=== PATIENT | female | born 1990 | race Caucasian/White ===

== ENCOUNTER 2016-07-23 12:44 | Emergency (ER) | payer SELFPAY ==
[~2016-07-23] VITALS: Ht 172.7 cm; Wt 133.8 kg
[2016-07-23 13:15] VITALS: BP 140/78
[2016-07-23 13:27] LABS: BILIRUBIN,URINE NEGATIVE (NEG); GLUCOSE,URINE NEGATIVE (NEG); NITRITE,URINE POSITIVE (NEG); PH,URINE 7.5; PROTEIN,URINE NEGATIVE (NEG-TRACE)
--- NOTE | 2016-07-23 13:29 | PHYS DOC ---
Past Medical History Past Medical History: UTI, Other Additional Past Medical Histor: toxic shock @ age 12, htn since / delivery, seas allergies Past Surgical History: Cholecystectomy Alcohol Use: None Drug Use: None Adult General Chief Complaint Chief Complaint: ABDOMINAL PAIN HPI HPI Patient is a 26 year old female presenting to the emergency department for evaluation of dysuria and addition to right upper quadrant pain relating to her right flank. Symptoms have been going on for several days and she had 1 episode of nonbloody nonbilious emesis last night and she still feels nauseated. She had a cholecystectomy on June 18 and says that she is still having intermittent right upper quadrant pain. No fevers chills or vaginal bleeding vaginal discharge diarrhea or constipation. Patient denies any other abdominal surgeries and she is in no obvious distress with normal vital signs.. Review of Systems Review of Systems Constitutional: Denies fever or chills [] Eyes: Denies change in visual acuity, redness, or eye pain [] HENT: Denies nasal congestion or sore throat [] Respiratory: Denies cough or shortness of breath [] Cardiovascular: No additional information not addressed in HPI [] GI: + abdominal pain, nausea, vomiting. No bloody stools or diarrhea [] : + dysuria. Musculoskeletal: Denies back pain or joint pain [] Integument: Denies rash or skin lesions [] Neurologic: Denies headache, focal weakness or sensory changes [] Current Medications Current Medications Current Medications Medications (Trade) Dose Ordered Sig/Ashly Start Time Stop Time Status Last Admin Dose Admin Ceftriaxone Sodium (Rocephin Im) 1 gm 1X ONCE 07/23/16 13:45 07/23/16 13:46 Ondansetron HCl (Zofran Odt) 8 mg 1X ONCE 07/23/16 13:45 07/23/16 13:46 07/23/16 13:34 8 MG Oxycodone/ Acetaminophen (Percocet 5/325) 2 tab 1X ONCE 07/23/16 13:45 07/23/16 13:46 07/23/16 13:35 2 TAB Allergies Allergies Allergies Coded Allergies Type Severity Reaction Last Updated Verified No Known Drug Allergies 06/06/14 No Physical Exam Physical Exam Constitutional: Well developed, well nourished, no acute distress, non-toxic appearance. [] HENT: Normocephalic, atraumatic, bilateral external ears normal, oropharynx moist, no oral exudates, nose normal. [] Eyes: PERRLA, EOMI, conjunctiva normal, no discharge. [] Neck: Normal range of motion, no tenderness, supple, no stridor. [] Cardiovascular:Heart rate regular rhythm, no murmur [] Lungs & Thorax: Bilateral breath sounds clear to auscultation [] Abdomen: Bowel sounds normal, soft, + RUQ tenderness, No rebound or guarding, no masses, no pulsatile masses. [] Skin: Warm, dry, no erythema, no rash. [] Back: No tenderness, no CVA tenderness. [] Extremities: No tenderness, no cyanosis, no clubbing, ROM intact, no edema. [] Neurologic: Alert and oriented X 3, normal motor function, normal sensory function, no focal deficits noted. [] Current Patient Data Vital Signs Vital Signs Date Time Temp Pulse Resp B/P (MAP) Pulse Ox O2 Delivery O2 Flow Rate FiO2 07/23/16 13:35 Room Air 07/23/16 13:15 97.9 89 20 140/78 (98) 96 97.9 Lab Values Laboratory Tests Test 07/23/16 12:11 07/23/16 13:20 POC Urine HCG, Qualitative Hcg negative (Negative) Urine Collection Type Unknown Urine Color Yellow Urine Clarity Cloudy Urine pH 7.5 Urine Specific [place] 1.015 Urine Protein Negative mg/dL (NEG-TRACE) Urine Glucose (UA) Negative mg/dL (NEG) Urine Ketones (Stick) Negative mg/dL (NEG) Urine Blood Large (NEG) Urine Nitrite Positive (NEG) Urine Bilirubin Negative (NEG) Urine Urobilinogen Dipstick 1.0 mg/dL (0.2 mg/dL) Urine Leukocyte Esterase Large (NEG) Urine RBC Tntc /HPF (0-2) Urine WBC Tntc /HPF (0-4) Urine Squamous Epithelial Cells Few /LPF Urine Bacteria Many /HPF (0-FEW) Urine Mucus Slight /LPF EKG EKG [] Radiology/Procedures Radiology/Procedures [] Course & Med Decision Making Course & Med Decision Making Patient with nonspecific abdominal pain and dysuria. Patient has right upper quadrant pain and right flank pain in addition to a very abnormal urinalysis consistent with pyelonephritis. She says her pain and nausea are gone here and she can tolerate fluids by mouth so she'll be discharged with Levaquin [place] Zofran and given a Rocephin shot here. Patient aware and agreeable with plan for discharge and verbalized understanding of the need for short-term follow-up and strict ER return precautions discussed, worsening pain fevers vomiting or other general concerns. Denisa Disclaimer Dragon Disclaimer This electronic medical record was generated, in whole or in part, using a voice recognition dictation system. Departure Departure Impression: Primary Impression: Pyelonephritis Disposition: HOME, SELF-CARE Condition: GOOD Referrals: TIARA CUELLO MD (PCP) Patient Instructions: Pyelonephritis, Adult Additional Instructions: DRINK PLENTY OF WATER. YOU CAN TAKE IBUPROFEN FOR PAIN, THE NORCO IS FOR BREAKTHROUGH PAIN. COME BACK TO THE ED WITH ANY NEW OR WORSENING SYMPTOMS. THANK YOU! Scripts Levofloxacin (LEVAQUIN) 500 Mg Tablet 1 TAB PO DAILY, #7 TAB Prov: KATE POLLOCK DO 07/23/16 Ondansetron (ZOFRAN ODT) 4 Mg Tab.rapdis 4 MG PO BID Y for NAUSEA/VOMITING, #10 TAB Prov: KATE POLLOCK DO 07/23/16 Hydrocodone/Apap 5-325 (NORCO 5-325 TABLET) 1 Each Tablet 1 TAB PO PRN Q6HRS Y for PAIN, #14 TAB 0 Refills Prov: KATE POLLOCK DO 07/23/16 KATE POLLOCK DO Jul 23, 2016 13:29
[2016-07-23 13:37] LABS: BACTERIA,URINE MANY /HPF (0-FEW); RBC,URINE TNTC /HPF (0-2); SQUAMOUS EPITHELIAL CELL,UR FEW /LPF; WBC,URINE TNTC /HPF (0-4)
[2016-07-23] MEDS ORDERED: cefTRIAXone IM 1 GM VIAL IM ONE (13:45)
[2016-07-23] MEDS ORDERED: oxyCODONE/APAP 5/325 1 TAB TABLET PO ONE (13:45)
[2016-07-23] MEDS ORDERED: ONDANSETRON ODT 4 MG TAB.RAPDIS. PO ONE (13:45)
[2016-07-23] MEDS ORDERED: LEVO500T38 PO (13:49)
[2016-07-23] MEDS ORDERED: HYDR-971 PO (13:49)
[2016-07-23] MEDS ORDERED: ONDA4TAB10 PO (13:49)
[2016-07-23] MEDS ORDERED: FLUC150T PO (14:16)
== END 2016-07-23 14:35 | disposition home or self-care (01) ==
LOC: ER 12:44
DX: N12 Tubulo-interstitial nephritis, not specified as acute or chronic (principal); I10 Essential (primary) hypertension; Z87.440 Personal history of urinary (tract) infections; Z90.49 Acquired absence of other specified parts of digestive tract
CPT/HCPCS: 81001; 81025; 87086; 96372; 99284; J0696; Q0162; 87186

== ENCOUNTER 2016-09-07 16:30 | Emergency (ER) | payer OTHER ==
[~2016-09-07] VITALS: Ht 172.7 cm; Wt 127.0 kg
[~2016-09-07 16:30] MED LIST: FLUC150T PO; HYDR-971 PO; LEVO500T59 PO; ONDA4TAB10 PO
[2016-09-07 16:40] VITALS: BP 138/90
[2016-09-07 17:02] LABS: BILIRUBIN,URINE NEGATIVE (NEG); GLUCOSE,URINE NEGATIVE (NEG); NITRITE,URINE NEGATIVE (NEG); PH,URINE 7.5; PROTEIN,URINE NEGATIVE (NEG-TRACE)
[2016-09-07] MEDS ORDERED: NITR100C62 PO (17:04)
[2016-09-07] MEDS ORDERED: ACET325T9 PO (17:04)
[2016-09-07] MEDS ORDERED: PHEN-318 PO (17:04)
--- NOTE | 2016-09-07 17:05 | PHYS DOC ---
Past Medical History Past Medical History: UTI, Other Additional Past Medical Histor: toxic shock @ age 12, htn since / delivery, seas allergies Past Surgical History: Cholecystectomy Smoking: Cigarettes, Less than 1pk/day Additional Information: 0.25 PPD Alcohol Use: None Drug Use: None Adult General Chief Complaint Chief Complaint: FLANK PAIN HPI HPI This is a very pleasant 26-year-old female who is a 004 who is having UTI symptoms that began 2 days ago. She's had recurrent UTIs quite frequently more than 6 per year that require antibiotic therapy. She denies any sexual activity that many contributed to this symptom. She denies any vaginal trauma. She's had some intermittent back pain since that is dull and achy and lower pubic pains described as dull and achy as well with increased frequency, urgency and dysuria , patient denies any nausea, vomiting, diarrhea, fever, chills or bowel or bladder incontinence. She normally tries to take things like Azo over-the- counter pain medication to help her symptoms but they have not improved her symptoms. Review of Systems Review of Systems Constitutional: Denies fever or chills [] Eyes: Denies change in visual acuity, redness, or eye pain [] HENT: Denies nasal congestion or sore throat [] Respiratory: Denies cough or shortness of breath [] Cardiovascular: No additional information not addressed in HPI [] GI: sHe does complain of lower abdominal pain without nausea vomiting diarrhea or loose stools or constipation she does complain of dysuria urgency and frequency without hematuria. Musculoskeletal: Has a complaint of lower back pain that is intermittent not progressive. Integument: Denies rash or skin lesions [] Neurologic: Denies headache, focal weakness or sensory changes [] Endocrine: Denies polyuria or polydipsia [] Current Medications Current Medications Current Medications Medications (Trade) Dose Ordered Sig/Ashly Start Time Stop Time Status Last Admin Dose Admin Acetaminophen (Tylenol) 1,000 mg 1X ONCE 09/07/16 17:15 09/07/16 17:16 DC 09/07/16 17:11 1,000 MG Phenazopyridine HCl (Pyridium) 200 mg 1X ONCE 09/07/16 17:15 09/07/16 17:16 DC 09/07/16 17:11 200 MG Allergies Allergies Allergies Coded Allergies Type Severity Reaction Last Updated Verified No Known Drug Allergies 06/06/14 No Physical Exam Physical Exam Vital signs reviewed by me noted to be borderline hypertension without fever, tachypnea, or hypoxia. Constitutional: Well developed, well nourished, no acute distress, non-toxic appearance. [] Cardiovascular:Heart rate regular rhythm, no murmur [] Lungs & Thorax: Bilateral breath sounds clear to auscultation [] Abdomen: Bowel sounds normal, soft, no tenderness, no masses, no pulsatile masses. [] Skin: Warm, dry, no erythema, no rash. [] Back: No tenderness, no CVA tenderness. [] Current Patient Data Vital Signs Vital Signs Date Time Temp Pulse Resp B/P (MAP) Pulse Ox O2 Delivery O2 Flow Rate FiO2 09/07/16 16:40 98.6 98 16 138/90 (106) 99 Room Air 98.6 Lab Values Laboratory Tests Test 09/07/16 15:45 09/07/16 15:54 Urine Collection Type Unknown Urine Color Yellow Urine Clarity Cloudy Urine pH 7.5 Urine Specific [place] 1.015 Urine Protein Negative mg/dL (NEG-TRACE) Urine Glucose (UA) Negative mg/dL (NEG) Urine Ketones (Stick) Negative mg/dL (NEG) Urine Blood Negative (NEG) Urine Nitrite Negative (NEG) Urine Bilirubin Negative (NEG) Urine Urobilinogen Dipstick 1.0 mg/dL (0.2 mg/dL) Urine Leukocyte Esterase Large (NEG) Urine RBC 1-2 /HPF (0-2) Urine WBC >40 /HPF (0-4) Urine Squamous Epithelial Cells Many /LPF Urine Bacteria Moderate /HPF (0-FEW) POC Urine HCG, Qualitative Hcg negative (Negative) EKG EKG [] Radiology/Procedures Radiology/Procedures [] Course & Med Decision Making Course & Med Decision Making Pertinent Labs and Imaging studies reviewed. (See chart for details) She presents with UTI symptoms. [id number] urinalysis demonstrates no evidence of . Doubt ectopic . Urinalysis dosage with blood cells bacteria and a few epithelial cells. But given symptoms I will treat her empirically. Impression: UTI, abdominal pain Disposition: PCP follow-up in 24-48 hours with urology referral [] Dragon Disclaimer Dragon Disclaimer This electronic medical record was generated, in whole or in part, using a voice recognition dictation system. Departure Departure Impression: Primary Impression: UTI (urinary tract infection) Disposition: HOME, SELF-CARE Condition: IMPROVED Referrals: TIARA CUELLO MD (PCP) Patient Instructions: Urinary Tract Infection Additional Instructions: This return for any new or increasing symptoms, please follow-up urology as directed to evaluate you for possible anatomic abnormality which is concerning to her frequent UTIs. Please return for any questions or concerns. Scripts Acetaminophen (TYLENOL) 325 Mg Tablet 1-2 TAB PO QID, #60 TAB 2 Refills Prov: REJI DÍAZ MD 09/07/16 Phenazopyridine Hcl (PYRIDIUM) 200 Mg Tablet 200 MG PO TID for 3 Days, #9 TAB Prov: REJI DÍAZ MD 09/07/16 Nitrofurantoin Monohyd/M-Cryst (MACROBID 100 MG CAPSULE) 100 Mg Capsule 1 CAP PO BID, #20 CAP Prov: REJI DÍAZ MD 09/07/16 REJI DÍAZ MD Sep 07, 2016 17:04
[2016-09-07 17:14] LABS: BACTERIA,URINE MODERATE /HPF (0-FEW); SQUAMOUS EPITHELIAL CELL,UR MANY /LPF; WBC,URINE >40 /HPF (0-4)
[2016-09-07] MEDS ORDERED: ACETAMINOPHEN 500 MG TABLET PO ONE (17:15)
[2016-09-07] MEDS ORDERED: PHENAZOPYRIDINE 200 MG TABLET. PO ONE (17:15)
== END 2016-09-07 17:23 | disposition home or self-care (01) ==
LOC: ER 16:30
DX: N39.0 Urinary tract infection, site not specified (principal); I10 Essential (primary) hypertension; F17.210 Nicotine dependence, cigarettes, uncomplicated; Z90.49 Acquired absence of other specified parts of digestive tract
CPT/HCPCS: 81001; 81025; 87086; 99284

== ENCOUNTER 2016-09-28 21:23 | Emergency (ER) | payer OTHER ==
[~2016-09-28] VITALS: Ht 172.7 cm; Wt 140.6 kg
[~2016-09-28 21:23] MED LIST changes: +ACET325T9 PO; +NITR100C62 PO; +PHEN-318 PO
[2016-09-28 21:47] LABS: BILIRUBIN,URINE NEGATIVE (NEG); GLUCOSE,URINE NEGATIVE (NEG); NITRITE,URINE NEGATIVE (NEG); PH,URINE 7.5; PROTEIN,URINE 30 mg/dL (NEG-TRACE)
[2016-09-28 21:59] LABS: BACTERIA,URINE MODERATE /HPF (0-FEW); RBC,URINE OCC /HPF (0-2); SQUAMOUS EPITHELIAL CELL,UR MANY /LPF; WBC,URINE TNTC /HPF (0-4)
[2016-09-28 22:07] LABS: BASO % 0 % (0-3); EOS % 2 % (0-3); HEMATOCRIT 44.6 % (36.0-47.0); HEMOGLOBIN 15.2 g/dL (12.0-15.5); LYMPH # 3.1 x10^3/uL (1.0-4.8); LYMPH % 37 % (24-48); MEAN CORPUSCULAR HEMOGLOBIN 30 pg (25-35); MEAN CORPUSCULAR HGB CONC 34 g/dL (31-37); MEAN CORPUSCULAR VOLUME 89 fL (79-100); MONO % 8 % (0-9); NEUT % 54 % (31-73); PLATELET COUNT 221 x10^3/uL (140-400); RED BLOOD COUNT 5.01 x10^6/uL (3.50-5.40); RED CELL DISTRIBUTION WIDTH 12.7 % (11.5-14.5); WHITE BLOOD COUNT 8.6 x10^3/uL (4.0-11.0)
[2016-09-28 22:16] LABS: CALCIUM 9.5 mg/dL (8.5-10.1); CREATININE 0.8 mg/dL (0.6-1.0); GFR 88.1; MAGNESIUM 1.9 mg/dL (1.8-2.4); POTASSIUM 3.7 mmol/L (3.5-5.1)
--- NOTE | 2016-09-28 22:17 | PHYS DOC ---
Past Medical History Past Medical History: UTI, Other Additional Past Medical Histor: toxic shock @ age 12, htn since / delivery, seas allergies Past Surgical History: Cholecystectomy Alcohol Use: None Drug Use: None Adult General Chief Complaint Chief Complaint: FLANK PAIN HPI HPI Patient is a 26 year old female who presents with complaint of right-sided back pain and right-sided lower abdominal pain. The patient states that her symptoms started approximately 2 weeks ago. The patient states that she has gradually had worsening pain towards her right flank as well as pain in her lower abdomen. Patient also states that she started developing nausea and vomiting as well as dysuria over the past 2-3 days. The patient states she has history of frequent urinary tract infections and feels that she is having another active infection at this time. Patient states that she has an appointment with a specialist in one week for further evaluation for her frequent urinary tract infections. Patient states however due to her pain and nausea she did not feel she could wait for this appointment and felt she needed to be seen for treatment at this time. Patient rates her pain currently is 4 out of 10. Patient states that she has tried taking medications over-the- counter for symptoms with no relief. Review of Systems Review of Systems Constitutional: Denies fever or chills [] Eyes: Denies change in visual acuity, redness, or eye pain [] HENT: Denies nasal congestion or sore throat [] Respiratory: Denies cough or shortness of breath [] Cardiovascular: Denies chest pain or edema [] GI: Abdominal pain, nausea, vomiting, denies bloody stools or diarrhea [] : Dysuria, denies vaginal discharge or bleeding [] Musculoskeletal: Denies back pain or joint pain [] Integument: Denies rash or skin lesions [] Neurologic: Denies headache, focal weakness or sensory changes [] Current Medications Current Medications Current Medications Medications (Trade) Dose Ordered Sig/Ashly Start Time Stop Time Status Last Admin Dose Admin Ceftriaxone Sodium 50 ml @ 100 mls/hr 1X ONCE 09/28/16 22:30 09/28/16 22:59 09/28/16 22:24 100 MLS/HR Ketorolac Tromethamine (Toradol) 30 mg 1X ONCE 09/28/16 22:30 09/28/16 22:31 DC 09/28/16 22:25 30 MG Ondansetron HCl (Zofran) 4 mg 1X ONCE 09/28/16 22:30 09/28/16 22:31 DC 09/28/16 22:25 4 MG Sodium Chloride 1,000 ml @ 1,000 mls/hr Q1H 09/28/16 22:30 09/28/16 23:29 09/28/16 22:24 1,000 MLS/HR Allergies Allergies Allergies Coded Allergies Type Severity Reaction Last Updated Verified No Known Drug Allergies 06/06/14 No Physical Exam Physical Exam Constitutional: Alert, afebrile, no acute distress. [] HENT: Normocephalic, atraumatic, bilateral external ears normal, oropharynx moist, no oral exudates, nose normal. [] Eyes: PERRLA, EOMI, conjunctiva normal, no discharge. [] Neck: Normal range of motion, no tenderness, supple, no stridor. [] Cardiovascular: Tachycardia, regular rhythm, no murmur [] Lungs & Thorax: Bilateral breath sounds clear to auscultation [] Abdomen: Bowel sounds normal, soft, suprapubic tenderness to palpation with mild guarding, no right lower quadrant guarding, no masses, no pulsatile masses. [] Skin: Warm, dry, no erythema, no rash. [] Back: No midline tenderness, no CVA tenderness. [] Extremities: No tenderness, no cyanosis, no clubbing, ROM intact, no edema. [] Neurologic: Alert and oriented X 3, normal motor function, normal sensory function, no focal deficits noted. [] Current Patient Data Vital Signs Vital Signs Date Time Temp Pulse Resp B/P (MAP) Pulse Ox O2 Delivery O2 Flow Rate FiO2 09/28/16 21:39 98.2 107 16 163/87 (112) 98 Room Air 98.2 Lab Values Laboratory Tests Test 09/28/16 20:55 09/28/16 21:31 09/28/16 21:37 POC Urine HCG, Qualitative Hcg negative (Negative) Urine Collection Type Void Urine Color Yellow Urine Clarity Cloudy Urine pH 7.5 Urine Specific [place] 1.020 Urine Protein 30 mg/dL (NEG-TRACE) Urine Glucose (UA) Negative mg/dL (NEG) Urine Ketones (Stick) Negative mg/dL (NEG) Urine Blood Trace (NEG) Urine Nitrite Negative (NEG) Urine Bilirubin Negative (NEG) Urine Urobilinogen Dipstick 1.0 mg/dL (0.2 mg/dL) Urine Leukocyte Esterase Large (NEG) Urine RBC Occ /HPF (0-2) Urine WBC Tntc /HPF (0-4) Urine Squamous Epithelial Cells Many /LPF Urine Amorphous Sediment Present /HPF Urine Bacteria Moderate /HPF (0-FEW) Urine Mucus Slight /LPF White Blood Count 8.6 x10^3/uL (4.0-11.0) Red Blood Count 5.01 x10^6/uL (3.50-5.40) Hemoglobin 15.2 g/dL (12.0-15.5) Hematocrit 44.6 % (36.0-47.0) Mean Corpuscular Volume 89 fL (79-100) Mean Corpuscular Hemoglobin 30 pg (25-35) Mean Corpuscular Hemoglobin Concent 34 g/dL (31-37) Red Cell Distribution Width 12.7 % (11.5-14.5) Platelet Count 221 x10^3/uL (140-400) Neutrophils (%) (Auto) 54 % (31-73) Lymphocytes (%) (Auto) 37 % (24-48) Monocytes (%) (Auto) 8 % (0-9) Eosinophils (%) (Auto) 2 % (0-3) Basophils (%) (Auto) 0 % (0-3) Neutrophils # (Auto) 4.6 x10^3uL (1.8-7.7) Lymphocytes # (Auto) 3.1 x10^3/uL (1.0-4.8) Monocytes # (Auto) 0.7 x10^3/uL (0.0-1.1) Eosinophils # (Auto) 0.2 x10^3/uL (0.0-0.7) Basophils # (Auto) 0.0 x10^3/uL (0.0-0.2) Sodium Level 142 mmol/L (136-145) Potassium Level 3.7 mmol/L (3.5-5.1) Chloride Level 104 mmol/L (98-107) Carbon Dioxide Level 29 mmol/L (21-32) Anion Gap 9 (6-14) Blood Urea Nitrogen 13 mg/dL (7-20) Creatinine 0.8 mg/dL (0.6-1.0) Estimated GFR (Cockcroft-Gault) 88.1 Glucose Level 86 mg/dL (70-99) Calcium Level 9.5 mg/dL (8.5-10.1) Magnesium Level 1.9 mg/dL (1.8-2.4) Laboratory Tests 09/28/16 21:37 Laboratory Tests 09/28/16 21:37 EKG EKG Not performed [] Radiology/Procedures Radiology/Procedures Not performed [] Course & Med Decision Making Course & Med Decision Making Pertinent Labs and Imaging studies reviewed. (See chart for details) Patient was given IV fluids, Toradol, Zofran. Patient found have evidence of urinary tract infection and started on IV Rocephin in the emergency department. She called patient states she feels much better at this time. Patient will continue on 5 day course of Levaquin for outpatient treatment. Advised to continue with her scheduled appointment with her specialist in 1 week. Advised return emergency department for any worsening symptoms. Patient was understanding and in agreement with treatment plan. Dragon Disclaimer Dragon Disclaimer This electronic medical record was generated, in whole or in part, using a voice recognition dictation system. Departure Departure Impression: Primary Impression: UTI (urinary tract infection) Disposition: 01 HOME, SELF-CARE Condition: IMPROVED Referrals: TIARA CUELLO MD (PCP) Patient Instructions: Urinary Tract Infection Additional Instructions: Follow-up with your specialist in one week as scheduled. Return to emergency department for any worsening symptoms. Scripts Naproxen (NAPROSYN) 500 Mg Tablet 1 TAB PO BID, #20 TAB 0 Refills Prov: GINA FLOOD MD 09/28/16 Levofloxacin (LEVAQUIN) 750 Mg Tablet 1 TAB PO DAILY, #5 TAB Prov: GINA FLOOD MD 09/28/16 Problem Qualifiers Primary Impression: UTI (urinary tract infection) Urinary tract infection type: site unspecified Hematuria presence: without hematuria Qualified Codes: N39.0 - Urinary tract infection, site not specified GINA FLOOD MD Sep 28, 2016 22:17
[2016-09-28] MEDS ORDERED: KETOROLAC TROMETHAMINE 30 MG/ML INJ. IV ONE (22:30)
[2016-09-28] MEDS ORDERED: IV NORMAL SALINE 1000ML BAG 1,000 ML IV SCH (22:30)
[2016-09-28] MEDS ORDERED: ONDANSETRON PF 4 MG/2 ML VIAL. IV ONE (22:30)
[2016-09-28 22:35] VITALS: BP 136/70
[2016-09-28] MEDS ORDERED: NAPR500T PO (22:39)
[2016-09-28] MEDS ORDERED: LEVO750T31 PO (22:39)
== END 2016-09-28 22:58 | disposition home or self-care (01) ==
LOC: ER 21:23
DX: N39.0 Urinary tract infection, site not specified (principal); I10 Essential (primary) hypertension; Z87.440 Personal history of urinary (tract) infections
CPT/HCPCS: 36415; 80048; 81001; 81025; 83735; 85027; 87086; 96365; 96375; 99284; J0690; J1885; J2405; J7030